=== PATIENT | female | born 1935 | race Caucasian/White ===

== ENCOUNTER → 2017-02-03 | Outpatient (CLI) | payer OTHER | LOC: US 10:00 | DX: D64.9 Anemia, unspecified (principal); D61.818 Other pancytopenia | CPT/HCPCS: 76705 ==

== ENCOUNTER 2020-09-02 14:07 | Inpatient (IN) | payer OTHER ==
[~2020-09-02] VITALS: Ht 157.5 cm; Wt 81.6 kg
[~2020-09-02 14:07] MED LIST: ALDACTONE 25MG25 MG PO; CALCIUM600 MG PO; COZAAR50 MG PO; CYANOCOBAL1000 MCG/1 INJ; DEBROX15 ML AD; DIAMOX 250 MG250 MG PO; ENULOSE10 GM/15 M PO; K-DUR TAB 10 M10 MEQ PO; KENALOG CREAM 015 GM TOP; LASIX40 MG PO; LYRICA25 MG PO; PRADAXA 75 MG C75 MG PO; PRAVASTATIN SOD10 MG PO; ROXICODONE TAB 55 MG PO; SINGULAIR10 MG PO; SYNTHROID137 MCG PO; VALSARTAN80 MG PO; VENTOLIN HFA 66.7 GM INH; VITAMIN D250000 UNIT PO; XIFAXAN200 MG PO; ZOFRAN ODT 4 MG4 MG SL
[2020-09-02 14:53] LABS: HEMOGLOBIN 10.3 gm/dl (12.3-15.3); RED BLOOD COUNT 3.3 M/UL (4.00-5.10); WHITE BLOOD COUNT 4.5 K/UL (4.5-11.0)
[2020-09-02] MEDS ORDERED: ALDACTONE 25MG25 MG PO (19:02)
[2020-09-02] MEDS ORDERED: BUMETANIDE1 MG PO (19:03)
[2020-09-02] MEDS ORDERED: FERREX 150150 MG PO (19:04)
[2020-09-02] MEDS ORDERED: HYDROXYZINE HCL10 MG PO (19:06)
[2020-09-03 04:00] LABS: HEMOGLOBIN 9.6 gm/dl (12.3-15.3); RED BLOOD COUNT 3.06 M/UL (4.00-5.10); WHITE BLOOD COUNT 3.8 K/UL (4.5-11.0)
[2020-09-04 03:14] LABS: HEMOGLOBIN 9.1 gm/dl (12.3-15.3); RED BLOOD COUNT 2.91 M/UL (4.00-5.10)
[2020-09-05 02:34] LABS: HEMOGLOBIN 9.5 gm/dl (12.3-15.3); RED BLOOD COUNT 3.11 M/UL (4.00-5.10); WHITE BLOOD COUNT 4.3 K/UL (4.5-11.0)
[2020-09-06 02:39] LABS: HEMOGLOBIN 9.3 gm/dl (12.3-15.3); RED BLOOD COUNT 2.98 M/UL (4.00-5.10); WHITE BLOOD COUNT 3.7 K/UL (4.5-11.0)
== END 2020-09-08 16:00 | DRG 291 ==
LOC: ER1 14:07 → PROG CARE 19:00 → CDU 19:00 → PROG CARE 09-03 20:25
PROVIDERS: Emergency Medicine; Internal Medicine Nephrology; ADMIT Internal Medicine
PROC: 5A09457 Assistance with Respiratory Ventilation, 24-96 Consecutive Hours, Continuous Positive Airway Pressure (ICD-10-PCS; 2020-09-02)
PROC: B24BZZZ Ultrasonography of Heart with Aorta (ICD-10-PCS; principal; 2020-09-03)
DX: I13.0 Hypertensive heart and chronic kidney disease with heart failure and stage 1 through stage 4 chronic kidney disease, or unspecified chronic kidney disease (principal); I50.43 Acute on chronic combined systolic (congestive) and diastolic (congestive) heart failure; J18.9 Pneumonia, unspecified organism; J96.00 Acute respiratory failure, unspecified whether with hypoxia or hypercapnia; N17.9 Acute kidney failure, unspecified; I48.20 Chronic atrial fibrillation, unspecified; D61.818 Other pancytopenia; G93.40 Encephalopathy, unspecified; Z20.822 Contact with and (suspected) exposure to COVID-19; N18.30 Chronic kidney disease, stage 3 unspecified; I27.20 Pulmonary hypertension, unspecified; M19.90 Unspecified osteoarthritis, unspecified site; J30.9 Allergic rhinitis, unspecified; E78.5 Hyperlipidemia, unspecified; I08.1 Rheumatic disorders of both mitral and tricuspid valves; I95.9 Hypotension, unspecified; E03.9 Hypothyroidism, unspecified; D69.59 Other secondary thrombocytopenia; Z96.651 Presence of right artificial knee joint; K74.60 Unspecified cirrhosis of liver; Z66 Do not resuscitate; I49.5 Sick sinus syndrome; Z95.0 Presence of cardiac pacemaker; Z95.2 Presence of prosthetic heart valve; Z79.890 Hormone replacement therapy; Z79.899 Other long term (current) drug therapy
CPT/HCPCS: ECHO; 36415; 36600; 70450; 71045; 80053; 80307; 81001; 82140; 82550; 82553; 82570; 82803; 83690; 83874; 84156; 84300; 84484; 85007; 85025; 85027; 85610; 85730; 87086; 89050; 90471; 92526; 92610; 93005; 93306; 94660; 94760; 96365; 96366; 96375; 96376; 97162; 97166; 99285; A6212; G0480; J0696; J1250; J2270; J7030; J7050; P9045; P9047; U0002